=== PATIENT | female | born 1960 | race Caucasian/White ===

== ENCOUNTER 2017-11-18 22:51 | Emergency (ER) | payer MEDICARE ==
[~2017-11-18] VITALS: Ht 160 cm; Wt 88.5 kg
[2017-11-18 22:56] VITALS: BP 194/95; PULSE 59; RESP 18; TEMP 97.6; O2SAT 99
--- NOTE | 2017-11-18 23:14 | PD ---
HPI Chief Complaint: Fall Time Seen by Provider: 23:07 Travel History International Travel<30 days: No Contact w/Intl Traveler<30days: No Traveled to known affect area: No History of Present Illness HPI 57-year-old female here for evaluation of right anterior/lateral chest wall pain and right upper quadrant abdominal pain after mechanical trip and fall yesterday. The patient reports that she tripped on a metallic grate on the sidewalk yesterday at side. She denies head injury or LOC. No upper or lower extremity pain or injury. She has had pain in her right upper abdomen and right anterior/lateral chest wall since falling. She states the pain is constant, moderate, pressure-like, worse with inspiration and movements. She takes aspirin 81 mg daily. No other antiplatelets or anticoagulants. PFSH Past Medical History Arthritis: Yes Bipolar Disorder: Yes Anxiety: Yes Depression: Yes Cerebrovascular Accident: Yes (STROKE IN RIGHT EYE) Diminished Hearing: No Diverticulitis: Yes Gastrointestinal Disorders: Yes (UMBILICAL HERNIA) GERD: Yes Hypertension: Yes Kidney Stones: Yes Medical other: Yes (MACULAR DEGENERATION) Past Surgical History Abdominal Surgery: Yes (LYSIS OF ADHESIONS) Appendectomy: Yes Section: Yes Cholecystectomy: Yes Genitourinary Surgery: Yes (LITHOTRIPSY) Joint Replacement: Yes (LEFT TOTAL KNEE) Social History Alcohol Use: Yes (OCC) Tobacco Use: No Substance Use: No Allergies-Medications (Allergen,Severity, Reaction): Coded Allergies: No Known Allergies (Unverified , 11/18/17) Reported Meds & Prescriptions Reported Meds & Active Scripts Active Reported Stool Softener (Docusate Sodium) 50 Mg Capsule Melatonin 10 Mg Cap 10 Mg PO HS Furosemide 20 Mg Tab 20 Mg PO DAILY Clonazepam 1 Mg Tab 1 Mg PO BID Rexulti (Brexpiprazole) 4 Mg Tab 4 Mg PO DAILY Voltaren-Xr (Diclofenac Sodium) 100 Mg Tab.er.24h 75 Mg PO BID Aspirin Children's (Aspirin) 81 Mg Chew 81 Mg CHEW DAILY Fluoxetine (Fluoxetine HCl) 40 Mg Cap 40 Cap PO DAILY Lamictal (Lamotrigine) 200 Mg Tab 200 Mg PO DAILY Atenolol 50 Mg Tab 50 Mg PO BID Levothyroxine (Levothyroxine Sodium) 200 Mcg Tab 200 Mcg PO DAILY Review of Systems Except as stated in HPI: all other systems reviewed are Neg Physical Exam Narrative GENERAL: Well-developed, well-nourished, sitting comfortably on stretcher, no apparent distress. SKIN: Focused skin assessment warm/dry. No lacerations, abrasions, or ecchymosis. HEAD: Atraumatic. Normocephalic. EYES: Pupils equal and round. No scleral icterus. No injection or drainage. ENT: Mucous membranes pink and moist. NECK: Trachea midline. No JVD. CARDIOVASCULAR: Regular rate and rhythm. No murmur appreciated. RESPIRATORY: No accessory muscle use. Clear to auscultation. Breath sounds equal bilaterally. GASTROINTESTINAL: Abdomen soft, nondistended. Mild right upper quadrant tenderness without peritoneal signs. Rest of abdomen is soft and nontender. MUSCULOSKELETAL: No obvious deformities. No clubbing. No cyanosis. No edema. Moderate right anterior/lateral chest wall tenderness without step-off, without crepitus, without paradoxical chest wall movements. All joints and extremities are without deformity, without tenderness, with normal range of motion. No midline vertebral step-off or tenderness. NEUROLOGICAL: Awake and alert. No obvious cranial nerve deficits. Motor grossly within normal limits. Normal speech. PSYCHIATRIC: Appropriate mood and affect; insight and judgment normal. Data Data Last Documented VS Vital Signs Date Time Temp Pulse Resp B/P (MAP) Pulse Ox O2 Delivery O2 Flow Rate FiO2 11/18/17 23:37 20 97 Room Air 11/18/17 23:13 63 11/18/17 22:56 97.6 194/95 (128) Orders Orders Complete Blood Count With Diff (11/18/17 23:10) Comprehensive Metabolic Panel (11/18/17 23:10) Prothrombin Time / Inr (Pt) (11/18/17 23:10) Act Partial Throm Time (Ptt) (11/18/17 23:10) Ct Abd/Pel W Iv Contrast(Rout) (11/18/17 23:10) Iv Access Insert/Monitor (11/18/17 23:10) Ecg Monitoring (11/18/17 23:10) Oximetry (11/18/17 23:10) Sodium Chloride 0.9% Flush (Ns Flush) (11/18/17 23:15) Ct Thorax/ Chest W Iv Contrast (11/18/17 ) Ketorolac Inj (Toradol Inj) (11/19/17 00:00) Ondansetron Inj (Zofran Inj) (11/19/17 00:00) Iohexol 350 Inj (Omnipaque 350 Inj) (11/19/17 01:13) Labs Laboratory Tests Test 11/18/17 23:25 White Blood Count 6.9 TH/MM3 Red Blood Count 4.38 MIL/MM3 Hemoglobin 12.7 GM/DL Hematocrit 38.8 % Mean Corpuscular Volume 88.4 FL Mean Corpuscular Hemoglobin 29.0 PG Mean Corpuscular Hemoglobin Concent 32.8 % Red Cell Distribution Width 13.5 % Platelet Count 295 TH/MM3 Mean Platelet Volume 6.7 FL Neutrophils (%) (Auto) 64.3 % Lymphocytes (%) (Auto) 21.2 % Monocytes (%) (Auto) 9.5 % Eosinophils (%) (Auto) 4.2 % Basophils (%) (Auto) 0.8 % Neutrophils # (Auto) 4.5 TH/MM3 Lymphocytes # (Auto) 1.5 TH/MM3 Monocytes # (Auto) 0.7 TH/MM3 Eosinophils # (Auto) 0.3 TH/MM3 Basophils # (Auto) 0.1 TH/MM3 CBC Comment DIFF FINAL Differential Comment Prothrombin Time 9.9 SEC Prothromb Time International Ratio 1.0 RATIO Activated Partial Thromboplast Time 25.9 SEC Blood Urea Nitrogen 15 MG/DL Creatinine 0.93 MG/DL Random Glucose 101 MG/DL Total Protein 7.0 GM/DL Albumin 3.3 GM/DL Calcium Level 8.4 MG/DL Alkaline Phosphatase 126 U/L Aspartate Amino Transf (AST/SGOT) 19 U/L Alanine Aminotransferase (ALT/SGPT) 22 U/L Total Bilirubin 0.5 MG/DL Sodium Level 144 MEQ/L Potassium Level 3.6 MEQ/L Chloride Level 107 MEQ/L Carbon Dioxide Level 30.4 MEQ/L Anion Gap 7 MEQ/L Estimat Glomerular Filtration Rate 62 ML/MIN MDM Medical Decision Making Medical Screen Exam Complete: Yes Emergency Medical Condition: Yes Differential Diagnosis Chest wall contusion, rib fracture, intrathoracic trauma, intra-abdominal trauma Narrative Course Vital signs show heart rate 59, blood pressure 194/95, pulse ox 99% on room air , oral temp of 97.6F. CBC is unremarkable. CMP is essentially unremarkable. CT thorax: CONCLUSION: 1. Negative CT thorax with contrast. CT abdomen pelvis: CONCLUSION: Negative CT abdomen/pelvis with contrast. Patient was made aware of all findings per she is resting comfortably. She is not in any distress. She is not displaying any signs or symptoms of hypertensive crisis. She is stable for discharge home with outpatient follow- up with her primary care physician this week. I will give her a prescription for some Lortab. She was advised on when to return to the emergency department. She verbalizes understanding and agreement with plan. Diagnosis Primary Impression: Fall Qualified Codes: W19.XXXA - Unspecified fall, initial encounter Additional Impression: Chest wall contusion Qualified Codes: S20.211A - Contusion of right front wall of thorax, initial encounter Referrals: Primary Care Physician 3 days Additional Instructions: Follow-up with your primary care physician this week. Return to the emergency department for worsening symptoms or any other concerns. Scripts Hydrocodone-Acetaminophen (Hydrocodone-Acetaminophen) 5-300 Mg Tab 1 TAB PO Q6H Y for PAIN, #12 TAB 0 Refills Prov: Magdiel Chou MD 11/19/17 Disposition: 01 DISCHARGE HOME Condition: Stable Magdiel Chou MD Nov 18, 2017 23:14
[2017-11-18] MEDS ORDERED: SODIUM CHLORIDE 0.9% FLUSH 10 ML FLUSH IV FLUSH PRN (23:15)
[2017-11-18 23:37] VITALS: RESP 20; O2SAT 97
[2017-11-18] MEDS ORDERED: FURO20TA PO (23:37)
[2017-11-18] MEDS ORDERED: LEVO200T4 PO (23:37)
[2017-11-18] MEDS ORDERED: DOCU50CA5 (23:37)
[2017-11-18] MEDS ORDERED: ASPI81CH7 CHEW (23:37)
[2017-11-18] MEDS ORDERED: LAMI200T PO (23:37)
[2017-11-18] MEDS ORDERED: CLON1TAB PO (23:37)
[2017-11-18] MEDS ORDERED: FLUO40CA PO (23:37)
[2017-11-18] MEDS ORDERED: ATEN50TA PO (23:37)
[2017-11-18] MEDS ORDERED: VOLT100T PO (23:37)
[2017-11-18] MEDS ORDERED: BREX1TAB6 PO (23:37)
[2017-11-18] MEDS ORDERED: MELA10CA PO (23:37)
[2017-11-18 23:50] LABS: AUTOMATED NEUTROPHIL # 4.5 TH/MM3 (1.8-7.7); BASOPHIL # 0.1 TH/MM3 (0-0.2); BASOPHIL % 0.8 % (0.0-2.0); EOSINOPHIL # 0.3 TH/MM3 (0-0.4); EOSINOPHIL % 4.2 % (0.0-4.0); HEMATOCRIT 38.8 % (35.0-46.0); HEMOGLOBIN 12.7 GM/DL (11.6-15.3); LYMPH % 21.2 % (9.0-44.0); LYMPHOCYTE # 1.5 TH/MM3 (1.0-4.8); MEAN CELL VOLUME 88.4 FL (80.0-100.0); MEAN CORPUSCULAR HGB CONC 32.8 % (32.0-36.0); MEAN PLATELET VOLUME 6.7 FL (7.0-11.0); MONO % 9.5 % (0.0-8.0); MONOCYTE # 0.7 TH/MM3 (0-0.9); NEUT % 64.3 % (16.0-70.0); PLATELET COUNT 295 TH/MM3 (150-450); RED BLOOD COUNT 4.38 MIL/MM3 (4.00-5.30); RED CELL DISTRIBUTION WIDTH 13.5 % (11.6-17.2); WHITE BLOOD COUNT 6.9 TH/MM3 (4.0-11.0)
[2017-11-19] MEDS ORDERED: KETOROLAC TROMETHAMINE 30 MG/ML (IVP) VIAL IV PUSH ONE
[2017-11-19] MEDS ORDERED: ONDANSETRON HCL 4 MG/2 ML VIAL IV PUSH ONE
[2017-11-19 00:04] LABS: PROTHROMBIN TIME - PATIENT 9.9 SEC (9.8-11.6)
[2017-11-19 00:22] LABS: ALBUMIN 3.3 GM/DL (3.4-5.0); AST (GOT) 19 U/L (15-37); BICARBONATE 30.4 MEQ/L (21.0-32.0); BLOOD UREA NITROGEN 15 MG/DL (7-18); CALCIUM 8.4 MG/DL (8.5-10.1); CHLORIDE 107 MEQ/L (98-107); CREATININE 0.93 MG/DL (0.50-1.00); GLOMERULAR FILTRATION RATE 62 ML/MIN (>89); GLUCOSE,RANDOM 101 MG/DL (74-106); SODIUM (NA) 144 MEQ/L (136-145)
[2017-11-19 00:26] LABS: ALKALINE PHOSPHATASE 126 U/L (45-117); ALT (GPT) 22 U/L (10-53); TOTAL BILIRUBIN ADULT 0.5 MG/DL (0.2-1.0)
[2017-11-19] MEDS ORDERED: IOHEXOL 350 MG/ML 10 ML VIAL (for RAD DIAG) IVCONTRAST ONE (01:13)
--- NOTE | 2017-11-19 01:31 | RADRPT ---
EXAM DATE/TIME: 11/19/2017 00:41 [facility] COMPARISON: No previous studies available for comparison. INDICATIONS : Trauma, fall yesterday. Right sided chest pain. IV CONTRAST: 100 cc Omnipaque 350 (iohexol) IV ; Cumulative dose for multiple exams. RADIATION DOSE: 7.27 CTDIvol (mGy) ; Combined studies - Thorax/Abdomen/Pelvis MEDICAL HISTORY : Diverticulitis. Gastroesophageal reflux disease. Hernia, umbilical.Renal calculi. Hypertension. SURGICAL HISTORY : Appendectomy. Cholecystectomy. section.Lysis of adhesions. ENCOUNTER: Initial ACUITY: 1 day PAIN SCALE: 5/10 LOCATION: Right chest TECHNIQUE: Volumetric scanning of the chest was performed. Using automated exposure control and adjustment of t he mA and/or kV according to patient size, radiation dose was kept as low as reasonably achievable to obtain optimal diagnostic quality images. DICOM format image data is available electronically for review and comparison. Follow-up recommendations for detected pulmonary nodules are based at a minimum on nodule size and pa tient risk factors according to Fleischner Society Guidelines. FINDINGS: LUNGS: There is no consolidation or pneumothorax. No concerning pulmonary nodule is visualized. PLEURA: There is no pleural thickening or pleural effusion. MEDIASTINUM: The heart and great vessels demonstrate no acute abnormality. There is no mediastinal or hilar lymph adenopathy. AXILLAE: Within normal limits. No lymphadenopathy. SKELETAL: Within normal limits for patient age. MISCELLANEOUS: The visualized upper abdominal organs demonstrate no acute abnormality. CONCLUSION: 1. Negative CT thorax with contrast. Gaetano Bonilla MD on November 19, 2017 at 1:24 Board Certified Radiologist. This report was verified electronically.
--- NOTE | 2017-11-19 01:33 | RADRPT ---
EXAM DATE/TIME: 11/19/2017 00:41 [facility] COMPARISON: No previous studies available for comparison. INDICATIONS : Trauma, fall yesterday. Right sided pain. IV CONTRAST: 100 cc Omnipaque 350 (iohexol) IV ; Cumulative dose for multiple exams. ORAL CONTRAST: No oral contrast ingested. RADIATION DOSE: 7.27 CTDIvol (mGy) ; Combined studies - Thorax/Abdomen/Pelvis MEDICAL HISTORY : Diverticulitis. Gastroesophageal reflux disease. Hernia, umbilical.Hypertension. Renal calculi. SURGICAL HISTORY : Appendectomy. Cholecystectomy. section.Lysis of adhesions. ENCOUNTER: Initial ACUITY: 1 day PAIN SCALE: 4/10 LOCATION: Right abdomen TECHNIQUE: Volumetric scanning of the abdomen and pelvis was performed. Using automated exposure control and ad justment of the mA and/or kV according to patient size, radiation dose was kept as low as reasonably achievable to obtain optimal diagnostic quality images. DICOM format image data is available electro nically for review and comparison. FINDINGS: LOWER LUNGS: The visualized lower lungs are clear. LIVER: Homogeneous density without lesion. There is no dilation of the biliary tree. Cholecystectomy. SPLEEN: Normal size without lesion. PANCREAS: Within normal limits. KIDNEYS: Normal in size and shape. There is no mass, stone or hydronephrosis. ADRENAL GLANDS: Within normal limits. VASCULAR: There is no aortic aneurysm. BOWEL/MESENTERY: The stomach, small bowel, and colon demonstrate no acute abnormality. There is no free intraperitone al air or fluid. ABDOMINAL WALL: Within normal limits. RETROPERITONEUM: There is no lymphadenopathy. BLADDER: No wall thickening or mass. REPRODUCTIVE: Within normal limits. INGUINAL: There is no lymphadenopathy or hernia. MUSCULOSKELETAL: Within normal limits for patient age. CONCLUSION: Negative CT abdomen/pelvis with contrast. Gaetano Bonilla MD on November 19, 2017 at 1:30 Board Certified Radiologist. This report was verified electronically.
[2017-11-19] MEDS ORDERED: HYDR-4107 PO (01:44)
== END 2017-11-19 01:54 | disposition home or self-care (01) ==
LOC: NEPE 22:51
DX: S20.211A Contusion of right front wall of thorax, initial encounter (principal); F31.9 Bipolar disorder, unspecified; I10 Essential (primary) hypertension; W01.0XXA Fall on same level from slipping, tripping and stumbling without subsequent striking against object, initial encounter; Z86.73 Personal history of transient ischemic attack (TIA), and cerebral infarction without residual deficits
CPT/HCPCS: 71260; 74177; 80053; 85025; 85610; 85730; 96374; 96375; 99284; J1885; J2405; Q9967